=== PATIENT | female | born 1960 | race Caucasian/White ===

== ENCOUNTER 2016-06-04 09:29 | Emergency (ER) | payer OTHER ==
--- NOTE | 2016-06-04 12:16 | ED ORDER SUMMARY ---
..... Patient: CATHERINE SANTANA OrderSheet [facility] VisitID: [id number] [place] [address] 56y, F Registration Date/Time: 06/04/2016 ORDER SHEET Weight: 73.9 kg (stated) Allergies: No Known Drug Allergy GENERAL ORDERS: CBC w Diff Urgent (10:06/04/2016 Samy Rivera) (Ack 10:22 Tasianer) (10:43 Landon R.N.) CMP Urgent (10:06/04/2016 Samy Rivera) (Ack 10:22 Tasianer) (10:43 Landon R.N.) PT with INR Urgent (10:06/04/2016 Samy Rivera) (Ack 10:22 Tasianer) (10:43 Landon R.N.) UA-Culture if indicated Urgent (10:06/04/2016 Samy Rivera) (10:22 Dallin R.N.) Pulse oximeter (10:06/04/2016 Samy Rivera) (Ack 10:22 Tasianer) (10:43 Landon R.N.) MEDICATION ORDERS: Cyclobenzaprine PO 10 mg (NOW) (11:09 06/04/2016 Samy Rivera) (11:29 Landon R.N.) IV FLUIDS: IV NS : initial bolus 1000 mL (1000 mL/hr), then none - for X1 (NOW) (10:06/04/2016 Samy Rivera) (10:45 Dallin R.N.) Zofran IV 4 mg (NOW) (10:06/04/2016 Samy Rivera) (10:43 Landon R.N.) ORDER SHEET NOTES: [Electronically signed by Anabell Alvarado R.N. (12:50 06/04/2016)] [Electronically signed by Kevon Ramirez Dr. (08:21 06/10/2016)] [Electronically locked/signed by Anabell Alvarado R.N. (12:50 06/04/2016)]
--- NOTE | 2016-06-04 12:16 | ED NURSING NOTES ---
Clinical Report - Nurses [facility]ly [facility] [address] [place] [address] 06/04/2016 9:33 Patient: CATHERINE SANTANA TRIAGE Triage time 09:39 Jun 04 2016. Acuity: LEVEL 5. Chief Complaint: (Patient withdrawing from Morphine ER 90mg a day last dose was on Thursday). 09:54 06/04/16. SEPSIS SCREEN: Sepsis Screen. Negative (no infection suspected/documented). YIMI COMA SCORE: Yimi Coma Scale: 15- eyes open spontaneously (4); best verbal response- oriented x 4 (5); best motor response- obeys commands (6). --09:54 Anabell Alvarado R.N. 09:43 06/04/16. BP: 143/117 (regular adult cuff) taken on the left arm, while sitting. HR: 112. RR: 18. O2 saturation: 98% on room air. Temp: 99.3 F (oral). Pain level now: 5/10. Additional comments: body aches . --09:54 Anabell Alvarado R.N. late entry - 10:43. --11:03 Anabell Alvarado R.N. Weight: 73.9 kg stated. Height/Length: 62 inches Per Patient. BMI: 29.8. --09:53 Anabell Alvarado R.N. Medications Gabapentin Oral (Tablet 600 mg) 2 tablets, 3x a day. --09:49 Anabell Alvarado R.N. Aspir-Low Oral. --09:49 Anabell Alvarado R.N. Advil Oral (Tablet 200 mg) 1 tablet, 4x a day. --09:50 Anabell Alvarado R.N. COPD medication. --11:03 Anabell Alvarado R.N. Allergies No Known Drug Allergy. --09:52 Anabell Alvarado R.N. History Arrived by private vehicle. Historian: patient. Accompanied by family and mother. ( Patient takes Morphine ER 45mg twice a day for 8 years and hasnt had medication since Thursday). Treatment MANAGER BUSINESS SYSTEMS: Recently seen in a medical facility; treatment- pain medication. (Oxycodone at 3AM). SOCIAL HX: Heavy tobacco smoker- 1-2 packs per day. No alcohol use or drug use. ABUSE ASSESSMENT: No report of abuse. FALL RISK ASSESSMENT: Fall risk assessment completed. No fall risk identified. NUTRITIONAL RISK ASSESSMENT: The nutritional risk assessment revealed no deficiencies. FUNCTIONAL ASSESSMENT: Functional assessment: no impairments noted. LEARNING NEEDS ASSESSMENT: The learning needs assessment revealed no barriers. SKIN INTEGRITY ASSESSMENT: Skin integrity risk assessment completed. No skin integrity risk identified. --09:54 Anabell Alvarado R.N. PROBLEMS: Back Pain. --09:53 Anabell Alvarado R.N. COPD - Chronic Obstructive Pulmonary Disease. --11:03 Anabell Alvarado R.N. ADDITIONAL SURGERIES: Appendectomy. Back Surgery. Carpal Tunnel Surgery. Hysterectomy. Tonsillectomy & Adenoidectomy. --09:53 Anabell Alvarado R.N. Interventions ID band on patient. To treatment room. --09:54 Anabell Alvarado R.N. PHYSICAL ASSESSMENT 09:55 06/04/16. Ambulatory to room. GENERAL / NEURO / PSYCH: Appears anxious. RESPIRATORY: Respirations not labored. --09:55 Anabell Alvarado R.N. NURSING PROGRESS NOTES 09:55 06/04/16. Head of bed elevated. Reassurance given. Two patient identifiers checked. Call light placed in reach. Side rails up x 1. Bed placed in lowest position. Brakes of bed on. Patient ready for evaluation- chart flagged. --09:55 Anabell Alvarado R.N. 10:30 06/04/2016 Site #1 started via IV in the left forearm with an 20g angiocath, with aseptic technique and good blood return; one attempt. Blood drawn: rainbow set. Saline lock flushed with 10 mL saline. --10:40 Anabell Alvarado R.N. 10:43 06/04/2016 Zofran (Ondansetron HCl) IVP 4 mg given over 1 minute(s) via site #1. Allergies verified and confirmed 5 rights. IV patency established. IV site checked: no pain, redness, or swelling. IV flushed thoroughly pre- and post-medication administration. IVP given by RN. --10:43 Anabell Alvarado R.N. 10:44 06/04/2016 Started bag #1 1000 mL IV Fluids IV NS (Saline); bolus of 1000 mL over 1 hour(s) via site #1 via dial-a-flow. Allergies verified and confirmed 5 rights. IV patency established. IV site checked: no pain, redness, or swelling. IV flushed thoroughly pre- and post-medication administration. --10:45 Cuong Molina R.N. 11:18 06/04/16. ( Patient feeling a little anxious at this time). --11:18 Anabell Alvarado R.N. 11:15 06/04/16. BP: 119/77 (regular adult cuff) taken on the right arm, while sitting. HR: 82 (regular). RR: 18 (regular). O2 saturation: 98% on room air. Temp: 98 F (oral). Pain level now: 10. --11:18 Anabell Alvarado R.N. 11:28 06/04/2016 Cyclobenzaprine PO Tablets 10 mg given. Allergies verified, confirmed 5 rights and sedative warning given to the patient and patient's family. --11:29 Anabell Alvarado R.N. 11:40 06/04/2016 Zofran IVP Response: no adverse reaction pain is improving. Symptoms have improved the patient feels better. --11:41 Anabell Alvarado R.N. 11:49 06/04/2016 IV Fluids IV NS Discontinued: bag #1 completed. Total amount infused: 1000 mL. IV patency established. IV site checked: no pain, redness, or swelling. IV flushed thoroughly. --11:50 Anabell Alvarado R.N. 11:49 06/04/16. ( Patient refuses to keep the SPO2 monitor on. Her O2 sats are ranging from 93% to 98%). --11:49 Anabell Alvarado R.N. 12:38 06/04/2016 Cyclobenzaprine PO Response: no adverse reaction pain is improving. Symptoms have improved the patient feels better. --12:48 Anabell Alvarado R.N. DISPOSITION / DISCHARGE 12:39 06/04/2016 Site #1 removed upon discharge. Bandage applied. --12:39 Anabell Alvarado R.N. 12:41 06/04/16. Condition at departure: improved. No learning barriers present. Discharge instructions provided and reviewed with the patient and parent. Reviewed medication(s) side effects and precautions information. Patient and parent verbalized understanding. Written instructions provided in Lithuanian. The patient was discharged by the physician. She was discharged home and accompanied by parent. She left the Emergency Department ambulatory and via private vehicle. Parent driving. FALL RISK ASSESSMENT: Fall risk assessment completed. No fall risk identified. --12:41 Anabell Alvarado R.N. 12:39 06/04/16. BP: 136/76 (regular adult cuff) taken on the left arm, while lying. HR: 69 (regular). RR: 18 (regular). O2 saturation: 98% on room air. Temp: 98.5 F. Pain level now: 5/10. --12:41 Anabell Alvarado R.N. Departure time: 1240. --12:49 Anabell Alvarado R.N. Locked/Released at 06/04/2016 12:50 by Anabell Alvarado R.N.
--- NOTE | 2016-06-04 12:16 | ED ORDER SUMMARY ---
..... Patient: CATHERINE SANTANA OrderSheet [facility] VisitID: [id number] [place] [address] 56y, F Registration Date/Time: 06/04/2016 ORDER SHEET Weight: 73.9 kg (stated) Allergies: No Known Drug Allergy GENERAL ORDERS: CBC w Diff Urgent (10:06/04/2016 Samy Rivera) (Ack 10:22 Tasianer) (10:43 Landon R.N.) CMP Urgent (10:06/04/2016 Samy Rivera) (Ack 10:22 Tasianer) (10:43 Landon R.N.) PT with INR Urgent (10:06/04/2016 Samy Rivera) (Ack 10:22 Tasianer) (10:43 Landon R.N.) UA-Culture if indicated Urgent (10:06/04/2016 Samy Rivera) (10:22 Dallin R.N.) Pulse oximeter (10:06/04/2016 Samy Rivera) (Ack 10:22 Tasianer) (10:43 Landon R.N.) MEDICATION ORDERS: Cyclobenzaprine PO 10 mg (NOW) (11:09 06/04/2016 Samy Rivera) (11:29 Landon R.N.) IV FLUIDS: IV NS : initial bolus 1000 mL (1000 mL/hr), then none - for X1 (NOW) (10:06/04/2016 Samy Rivera) (10:45 Dallin R.N.) Zofran IV 4 mg (NOW) (10:06/04/2016 Samy Rivera) (10:43 Landon R.N.) ORDER SHEET NOTES: [Electronically signed by Anabell Alvarado R.N. (12:50 06/04/2016)] [Electronically signed by Kevon Ramirez Dr. (08:21 06/10/2016)] [Electronically locked/signed by Anabell Alvarado R.N. (12:50 06/04/2016)]
--- NOTE | 2016-06-04 12:16 | ED CLINICAL REPORT ---
Clinical Report - Physicians/Mid Levels [facility] [address] [place] [address] 06/04/2016 9:33 Patient: CATHERINE SANTANA Time Seen: 0950. Arrived- By private vehicle. Historian- patient. HISTORY OF PRESENT ILLNESS Chief Complaint: wants to get off or morphine. Symptoms started a week ago. Substances abused: Narcotics. (3 day sago). reports long history of Rx morphine for chronic pain. States she wants to get off. The patient has had chills, nausea, vomiting and diarrhea and been agitated. body aches, insomnia, anxiety. The symptoms are described as severe. No injuries noted. Similar symptoms previously: None. Recent medical care: Not recently seen/assessed. REVIEW OF SYSTEMS No chest pain, palpitations or skin abscess. All systems otherwise negative, except as recorded above. PAST HISTORY See nurses notes. Medications: Advil Oral (Tablet 200 mg) 1 tablet, 4x a day. Aspir-Low Oral. Gabapentin Oral (Tablet 600 mg) 2 tablets, 3x a day. Allergies: No Known Drug Allergy. SOCIAL HISTORY Smoker- current status unknown. No alcohol use or drug use. Has social support. Has place to stay. FAMILY HISTORY No history of psychiatric problems. Negative. PHYSICAL EXAM Appearance: Alert. Oriented X3. No acute distress. Head: Head atraumatic. Eyes: Pupils equal, round and reactive to light. ENT: Normal ENT inspection. Airway intact. Moist mucous membranes. Pharynx normal. Neck: Normal inspection. Neck supple. CVS: Normal heart rate and rhythm. Heart sounds normal. Pulses normal. Respiratory: No respiratory distress. Breath sounds normal. Abdomen: Soft and nontender. No organomegaly. Back: Normal inspection. Skin: Skin warm and dry. Normal skin color. No rash. Normal skin turgor. Extremities: Extremities exhibit normal ROM. No lower extremity edema. Neuro: Alert. Oriented X 3. Mood/affect normal. Speech normal. Cranial nerves normal (as tested). No cerebellar findings. No motor deficit. No sensory deficit. Reflexes normal. LABS, X-RAYS, AND EKG Laboratory Tests: UA-Culture if indicated: (KATELYNN: 06/04/2016 09:55) ( [facility] [place]/04[place]2016 10:40) Final results Test Result Flag Units (Reference) URINE COLOR YELLOW URINE APPEARANCE CLEAR URINE GLUCOSE NEGATIVE (NEGATIVE) URINE BILIRUBIN NEGATIVE (NEGATIVE) URINE KETONE NEGATIVE (NEGATIVE) URINE SPECIFIC GRAVITY <= 1.005 L (1.010-1.030) URINE PH 6.0 (5.0-8.0) URINE PROTEIN NEGATIVE (NEGATIVE) URINE UROBILINOGEN 0.2 EU/dL (0.2-1.0) URINE NITRITE NEGATIVE (NEGATIVE) URINE BLOOD NEGATIVE (NEGATIVE) URINE LEUK ESTERASE NEGATIVE (NEGATIVE) URINE RBC RARE rbc/hpf (0-1) URINE WBC RARE wbc/hpf (0-1) URINE EPITHELIAL CELLS 1-3 EPI/hpf (0-5) URINE BACTERIA TRACE (<1+) (NONE SEEN) URINE COMMENT CULT NOT INDICATED URINE CULTURES ARE SET-UP BASED ON THE FOLLOWING CRITERIA:POSITIVE NITRITEPOSITIVE LEUKOCYTE ESTERASEGREATER THAN 10 WHITE BLOOD CELLSMODERATE (2+) OR GREATER BACTERIA CBC w Diff: (KATELYNN: 06/04/2016 10:35) ( [facility] [place]/04/2016 10:52) Final results Test Result Flag Units (Reference) WHITE BLOOD COUNT 8.1 K/uL (4.5-11.5) RED BLOOD COUNT 4.68 M/uL (4.00-5.20) HEMOGLOBIN 14.9 gm/dL (12.0-16.0) HEMATOCRIT 44.7 % (36.0-46.0) MEAN CELL VOLUME 96 fL (80-100) MEAN CORPUSCULAR HGB 32 pg (26-34) MEAN CORPUSCULAR HGB CONC 33 g/dL (31-37) RED CELL DISTRIBUTION WIDTH 13.7 % (11.6-14.8) PLATELET COUNT 262 K/uL (150-400) NEUTROPHIL % 57.2 % (50-75) LYMPH % 33.9 % (25-40) MONO % 5.3 % (3-14) EOSINOPHIL % 2.4 % (0-4) BASOPHIL % 1.2 % (0-2) PT with INR: (KATELYNN: 06/04/2016 10:35) ( Msg[facility]cvd 06/04/2016 11:00) Final results Test Result Flag Units (Reference) INR 1.0 (0.8-1.2) Low Intensity Therapy: INR 1.5-2.0 PT range 18.5-23.1Mod.Intensity Therapy: INR 2.0-3.0 PT range 23.1-31.5High Intensity Therapy: INR 2.5-3.5 PT range 27.4-35.5High Intensity Therapy 2: INR 3.0-4.0 PT range 31.5-39.3 CMP: (KATELYNN: 06/04/2016 11:06) ( MsgRcvd 06/04/2016 11:42) Final results Test Result Flag Units (Reference) GLUCOSE 93 mg/dL (70-110) BUN 8 mg/dL (7-18) CREATININE 0.7 mg/dL (0.6-1.3) Estimated GFR >60 mL/min Estimated GFR- >60 mL/min Note: Persistent reduction over 3 months in eGFR<60 mL/min/1.73 m2 defines CKD. Patients with eGFR values>=60 mL/min/1.73 m2 may also have CKD if evidence ofpersistent proteinuria. Additional information may be foundat www.kidney.org. SODIUM 144 mmol/L (136-145) POTASSIUM 4.0 mmol/L (3.5-5.1) CHLORIDE 107 mmol/L (98-107) CARBON DIOXIDE 25 mmol/L (21-32) CALCIUM 8.6 mg/dL (8.5-10.1) TOTAL PROTEIN 7.1 g/dL (6.4-8.2) ALBUMIN 3.7 g/dL (3.3-5.0) BILIRUBIN, TOTAL 0.3 mg/dL (0.0-1.0) ALKALINE PHOSPHATASE 76 U/L (46-116) AST (SGOT) 17 U/L (15-37) ALT (SGPT) 19 U/L (12-78) . PROGRESS AND PROCEDURES Course of Care: The patient is a pleasant 56-year-old female presenting for evaluation of opioid withdrawal. Symptoms are consistent with this. Had a long discussion with patient in regards to opioid withdrawal and medications. Patient and the patient's mother had demanded medications to help with the withdrawal symptoms. Had long discussion with patient and with the mother in regards to medications for opioid withdrawal. Explained to them the pathophysiology and mechanism behind withdrawals. Explained to patient and mother that it would be very difficult to provide patient with a medication that would help with the symptoms of opioid withdrawal while not also being addicting. I did caution patient and mother in regards to other types of medications to help with symptoms and their possible addictive risks. Because of this, the patient's in the patient's mother were understanding of trying to limit the prescription of medications provided for symptoms control. To patient that withdrawal from opioids is extremely painful and may be extremely difficult however they are not known to be life-threatening. The patient in the patient's mother were agreeable to the treatment plan. Nausea medications will be provided. Laboratory studies also been ordered for evaluation of the nausea and vomiting associated with the opioid withdrawal to evaluate for any underlying metabolic derangements or other more sinister causes such as pancreatitis or liver abnormalities. Patient's workup does not show any acute abnormalities. Patient reports a slight improvement with symptoms however states that they are still quite severe. Encouraged patient to continue with her course of treatment and to stay sober. Patient reports that she will try to stay sober. I also had discussion with patient in regards to other types of treatments. Patient reports that she does not want to be on methadone as she reports that this is worse than what she was on before. The patient was somewhat worried about the symptoms however it explained to patient that we would be here in the emergency department for any problems that she encountered in the future or if she needed help. Patient seemed to be relieved by this. Do not the patient needs to be admitted to the hospital require further emergency department workup/evaluation. Patient is a good outpatient candidate. Patient does have good outside resources. Patient also belongs to a local gnosticist which appears to be helping her with thewithdrawal process. Discussed with patient workup, diagnosis, home care, follow-up, and return precautions. All questions answered. The patient expressed understanding of these instructions and was agreeable to them. Disposition: Discharged. Condition: good. CLINICAL IMPRESSION 06/04/2016 09:44 BP: 143/117. HR: 112. RR: 18. O2 saturation: 98%. Temp: 99.3 F. Pain level now: 5/10. Blood pressure normal. Oxygen saturation normal. Narcotic withdrawal (acute). INSTRUCTIONS Warnings: GENERAL WARNINGS: Return or contact your physician immediately if your condition worsens or changes unexpectedly, if not improving as expected, or if other problems arise. Specifically return if pain, vomiting, bleeding, breathing difficulty or fever. Your Current Medications: CONTINUE TAKING THE FOLLOWING MEDICATIONS: Advil Oral : Tablet 200 mg, 1 tablet 4x a day. Aspir-Low Oral. COPD medication*. Gabapentin Oral : Tablet 600 mg, 2 tablets 3x a day. Prescription Medications: Zofran (orally disintegrating tablets) 4 mg: take 1 orally every 8 hours as needed for nausea and vomiting. Dispense fifteen (15). No refill. Substitution is permissible. Cyclobenzaprine 10 mg: take 1 orally every 8 hours for 5 days as needed for muscle spasm or pain. Dispense fifteen (15). No refills. Follow-up: Return to the emergency department as needed. Follow up with your doctor in three days. Reason for referral: recheck today's concerns. Summary of care provided to patient via paper. Screening today revealed the patient's blood pressure to be in the normal range. The patient should follow up with a primary care provider for blood pressure management. Understanding of the discharge instructions verbalized by patient. (Electronically signed by Kevon Ramirez Dr. 06/10/2016 8:21)
--- NOTE | 2016-06-10 08:21 | ED DISCHARGE INSTRUCTIONS ---
Patient: CATHERINE SANTANA General Instructions [facility] VisitID: [id number] [place] [address] 56y, F Registration Date/Time: 06/04/2016 06/04/2016 09:44 BP: 143/117. HR: 112. RR: 18. O2 saturation: 98%. Temp: 99.3 F. Pain level now: 5/10. Blood pressure normal. Oxygen saturation normal. Narcotic withdrawal (acute). INSTRUCTIONS Warnings: GENERAL WARNINGS: Return or contact your physician immediately if your condition worsens or changes unexpectedly, if not improving as expected, or if other problems arise. Specifically return if pain, vomiting, bleeding, breathing difficulty or fever. Your Current Medications: CONTINUE TAKING THE FOLLOWING MEDICATIONS: Advil Oral : Tablet 200 mg, 1 tablet 4x a day. Aspir-Low Oral. COPD medication*. Gabapentin Oral : Tablet 600 mg, 2 tablets 3x a day. Prescription Medications: Zofran (orally disintegrating tablets) 4 mg: take 1 orally every 8 hours as needed for nausea and vomiting. Dispense fifteen (15). No refill. Substitution is permissible. Cyclobenzaprine 10 mg: take 1 orally every 8 hours for 5 days as needed for muscle spasm or pain. Dispense fifteen (15). No refills. Follow-up: Return to the emergency department as needed. Follow up with your doctor in three days. Reason for referral: recheck today's concerns. Summary of care provided to patient via paper. Screening today revealed the patient's blood pressure to be in the normal range. The patient should follow up with a primary care provider for blood pressure management. Understanding of the discharge instructions verbalized by patient. ADDITIONAL INFORMATION Ondansetron Oral disintegrating tablet What is this medicine? ONDANSETRON (on ALLI se fatmata) is used to treat nausea and vomiting caused by chemotherapy. It is also used to prevent or treat nausea and vomiting after surgery. How should I use this medicine? These tablets are made to dissolve in the mouth. Do not try to push the tablet through the foil backing. With dry hands, peel away the foil backing and gently remove the tablet. Place the tablet in the mouth and allow it to dissolve, then swallow. While you may take these tablets with water, it is not necessary to do so. Talk to your serologist regarding the use of this medicine in children. Special care may be needed. What side effects may I notice from receiving this medicine? Side effects that you should report to your doctor or health child daycare worker as soon as possible: allergic reactions like skin rash, itching or hives, swelling of the face, lips, or tongue breathing problems dizziness fast or irregular heartbeat feeling faint or lightheaded, falls fever and chills swelling of the hands and feet tightness in the chest Side effects that usually do not require medical attention (report to your doctor or health child daycare worker if they continue or are bothersome): constipation or diarrhea headache What may interact with this medicine? Do not take this medicine with any of the following medications: -apomorphine -cisapride -dofetilide -dronedarone -pimozide -thioridazine -ziprasidone This medicine may also interact with the following medications: -carbamazepine -phenytoin -rifampicin -tramadol -other medicines that prolong the QT interval (cause an abnormal heart rhythm) What if I miss a dose? If you miss a dose, take it as soon as you can. If it is almost time for your next dose, take only that dose. Do not take double or extra doses. Where should I keep my medicine? Keep out of the reach of children. Store between 2 and 30 degrees C (36 and 86 degrees F). Throw away any unused medicine after the expiration date. What should I tell my health care provider before I take this medicine? They need to know if you have any of these conditions: heart disease history of irregular heartbeat liver disease low levels of magnesium or potassium in the blood an unusual or allergic reaction to ondansetron, granisetron, other medicines, foods, dyes, or preservatives or trying to get breast-feeding What should I watch for while using this medicine? Check with your doctor or health child daycare worker as soon as you can if you have any sign of an allergic reaction. Cyclobenzaprine Hydrochloride Oral tablet What is this medicine? CYCLOBENZAPRINE (sye kloe KINGSLEY destiny zaragozaen) is a muscle relaxer. It is used to treat muscle pain, spasms, and stiffness. How should I use this medicine? Take this medicine by mouth with a glass of water. Follow the directions on the prescription label. If this medicine upsets your stomach, take it with food or milk. Take your medicine at regular intervals. Do not take it more often than directed. Talk to your serologist regarding the use of this medicine in children. Special care may be needed. What side effects may I notice from receiving this medicine? Side effects that you should report to your doctor or health child daycare worker as soon as possible: allergic reactions like skin rash, itching or hives, swelling of the face, lips, or tongue chest pain fast heartbeat hallucinations seizures vomiting Side effects that usually do not require medical attention (report to your doctor or health child daycare worker if they continue or are bothersome): headache What may interact with this medicine? Do not take this medicine with any of the following medications: cisapride droperidol flecainide grepafloxacin halofantrine levomethadyl MAOIs like Carbex, Eldepryl, Marplan, Nardil, and Parnate nilotinib pimozide probucol sertindole This medicine may also interact with the following medications: abarelix alcohol contrast dyes dolasetron guanethidine medicines for cancer medicines for depression, anxiety, or psychotic disturbances medicines to treat an irregular heartbeat medicines used for sleep or numbness during surgery or procedure methadone octreotide ondansetron palonosetron phenothiazines like chlorpromazine, mesoridazine, prochlorperazine, thioridazine some medicines for infection like alfuzosin, chloroquine, clarithromycin, levofloxacin, mefloquine, pentamidine, troleandomycin tramadol vardenafil What if I miss a dose? If you miss a dose, take it as soon as you can. If it is almost time for your next dose, take only that dose. Do not take double or extra doses. Where should I keep my medicine? Keep out of the reach of children. Store at room temperature between 15 and 30 degrees C (59 and 86 degrees F). Keep container tightly closed. Throw away any unused medicine after the expiration date. What should I tell my health care provider before I take this medicine? They need to know if you have any of these conditions: heart disease, irregular heartbeat, or previous heart attack liver disease thyroid problem an unusual or allergic reaction to cyclobenzaprine, tricyclic antidepressants, lactose, other medicines, foods, dyes, or preservatives or trying to get breast-feeding What should I watch for while using this medicine? Check with your doctor or health child daycare worker if your condition does not improve within 1 to 3 weeks. You may get drowsy or dizzy when you first start taking the medicine or change doses. Do not drive, use machinery, or do anything that may be dangerous until you know how the medicine affects you. Stand or sit up slowly. Your mouth may get dry. Drinking water, chewing sugarless gum, or sucking on hard candy may help. You have been given the following additional information: Ondansetron Oral disintegrating tablet Cyclobenzaprine Hydrochloride Oral tablet (Electronically signed by Kevon Ramirez Dr. 06/10/2016 8:21)
--- NOTE | 2016-06-10 08:21 | ED MED RECONCILIATION SUMMARY ---
Patient: CATHERINE SANTANA Medication Reconciliation Report [facility] VisitID: [id number] [address] [place] [address] 56y, F Registration Date/Time: 06/04/2016 Weight: 73.9 kg Height/Length: 62 in. BMI: 29.8 ALLERGIES: No Known Drug Allergy The patient's Home Medications are listed below: CONTINUE TAKING THE FOLLOWING MEDICATIONS: Advil Oral (200 mg) 1 tablet, 4x a day Aspir-Low Oral COPD medication Gabapentin Oral (600 mg) 2 tablets, 3x a day The source(s) of the original Home Medication information: Not obtained. The following Medications were given to the patient in the Emergency Department: Zofran [IVP] IVP 4 mg, administered: 06/04/2016 10:43:00 AM IV NS IV Fluids bolus 1000 mL over 1 hour(s), administered: 06/04/2016 10:44:00 AM Cyclobenzaprine [PO] PO 10 mg, administered: 06/04/2016 11:28:00 AM The following Medications were prescribed to the patient: Zofran (orally disintegrating tablets) 4 mg: take 1 orally every 8 hours as needed for nausea and vomiting. Dispense fifteen (15). No refill. Substitution is permissible. -- Kevon Ramirez Dr. Cyclobenzaprine 10 mg: take 1 orally every 8 hours for 5 days as needed for muscle spasm or pain. Dispense fifteen (15). No refills. -- Kevon Ramirez Dr.
--- NOTE | 2016-06-10 08:21 | ED MAR SUMMARY ---
..... Medication Administration Record [facility] [address] [place] [address] Patient: CATHERINE SANTANA Visit ID: [id number] 56y, F Weight: 73.9 kg Height/Length: 62 in BMI: 29.8 ALLERGIES: No Known Drug Allergy Given 10:43 06/04/2016 Anabell Alvarado R.N. Medication Administered: ZOFRAN [IVP] (ONDANSETRON HCL), Dose: 4 mg IVP over 1 minute(s), Site: #1 left forearm. Medication Ordered: Zofran IV 4 mg (NOW). Start 10:44 06/04/2016 Cuong Molina R.N., Stop 11:49 06/04/2016 Anabell Alvarado R.N. Medication Administered: IV NS (SALINE), Dose: IV Fluids, Bolus: 1000 mL over 1 hour(s), Dispensed: 1000 mL bag, Site: #1 left forearm. Medication Ordered: IV NS : initial bolus 1000 mL (1000 mL/hr), then none - for X1 (NOW). Given 11:28 06/04/2016 Anabell Alvarado R.N. Medication Administered: CYCLOBENZAPRINE [PO], Dose: 10 mg Tablets PO. Medication Ordered: Cyclobenzaprine PO 10 mg (NOW).
--- NOTE | 2016-06-10 08:21 | ED DISCHARGE INSTRUCTIONS ---
Patient: CATHERINE SANTANA General Instructions [facility] VisitID: [id number] [place] [address] 56y, F Registration Date/Time: 06/04/2016 06/04/2016 09:44 BP: 143/117. HR: 112. RR: 18. O2 saturation: 98%. Temp: 99.3 F. Pain level now: 5/10. Blood pressure normal. Oxygen saturation normal. Narcotic withdrawal (acute). INSTRUCTIONS Warnings: GENERAL WARNINGS: Return or contact your physician immediately if your condition worsens or changes unexpectedly, if not improving as expected, or if other problems arise. Specifically return if pain, vomiting, bleeding, breathing difficulty or fever. Your Current Medications: CONTINUE TAKING THE FOLLOWING MEDICATIONS: Advil Oral : Tablet 200 mg, 1 tablet 4x a day. Aspir-Low Oral. COPD medication*. Gabapentin Oral : Tablet 600 mg, 2 tablets 3x a day. Prescription Medications: Zofran (orally disintegrating tablets) 4 mg: take 1 orally every 8 hours as needed for nausea and vomiting. Dispense fifteen (15). No refill. Substitution is permissible. Cyclobenzaprine 10 mg: take 1 orally every 8 hours for 5 days as needed for muscle spasm or pain. Dispense fifteen (15). No refills. Follow-up: Return to the emergency department as needed. Follow up with your doctor in three days. Reason for referral: recheck today's concerns. Summary of care provided to patient via paper. Screening today revealed the patient's blood pressure to be in the normal range. The patient should follow up with a primary care provider for blood pressure management. Understanding of the discharge instructions verbalized by patient. ADDITIONAL INFORMATION Ondansetron Oral disintegrating tablet What is this medicine? ONDANSETRON (on ALLI se fatmata) is used to treat nausea and vomiting caused by chemotherapy. It is also used to prevent or treat nausea and vomiting after surgery. How should I use this medicine? These tablets are made to dissolve in the mouth. Do not try to push the tablet through the foil backing. With dry hands, peel away the foil backing and gently remove the tablet. Place the tablet in the mouth and allow it to dissolve, then swallow. While you may take these tablets with water, it is not necessary to do so. Talk to your fisher trawl net regarding the use of this medicine in children. Special care may be needed. What side effects may I notice from receiving this medicine? Side effects that you should report to your doctor or health intensive care medicine specialist as soon as possible: allergic reactions like skin rash, itching or hives, swelling of the face, lips, or tongue breathing problems dizziness fast or irregular heartbeat feeling faint or lightheaded, falls fever and chills swelling of the hands and feet tightness in the chest Side effects that usually do not require medical attention (report to your doctor or health intensive care medicine specialist if they continue or are bothersome): constipation or diarrhea headache What may interact with this medicine? Do not take this medicine with any of the following medications: -apomorphine -cisapride -dofetilide -dronedarone -pimozide -thioridazine -ziprasidone This medicine may also interact with the following medications: -carbamazepine -phenytoin -rifampicin -tramadol -other medicines that prolong the QT interval (cause an abnormal heart rhythm) What if I miss a dose? If you miss a dose, take it as soon as you can. If it is almost time for your next dose, take only that dose. Do not take double or extra doses. Where should I keep my medicine? Keep out of the reach of children. Store between 2 and 30 degrees C (36 and 86 degrees F). Throw away any unused medicine after the expiration date. What should I tell my health care provider before I take this medicine? They need to know if you have any of these conditions: heart disease history of irregular heartbeat liver disease low levels of magnesium or potassium in the blood an unusual or allergic reaction to ondansetron, granisetron, other medicines, foods, dyes, or preservatives or trying to get breast-feeding What should I watch for while using this medicine? Check with your doctor or health intensive care medicine specialist as soon as you can if you have any sign of an allergic reaction. Cyclobenzaprine Hydrochloride Oral tablet What is this medicine? CYCLOBENZAPRINE (sye kloe KINGSLEY destiny zaragozaen) is a muscle relaxer. It is used to treat muscle pain, spasms, and stiffness. How should I use this medicine? Take this medicine by mouth with a glass of water. Follow the directions on the prescription label. If this medicine upsets your stomach, take it with food or milk. Take your medicine at regular intervals. Do not take it more often than directed. Talk to your fisher trawl net regarding the use of this medicine in children. Special care may be needed. What side effects may I notice from receiving this medicine? Side effects that you should report to your doctor or health intensive care medicine specialist as soon as possible: allergic reactions like skin rash, itching or hives, swelling of the face, lips, or tongue chest pain fast heartbeat hallucinations seizures vomiting Side effects that usually do not require medical attention (report to your doctor or health intensive care medicine specialist if they continue or are bothersome): headache What may interact with this medicine? Do not take this medicine with any of the following medications: cisapride droperidol flecainide grepafloxacin halofantrine levomethadyl MAOIs like Carbex, Eldepryl, Marplan, Nardil, and Parnate nilotinib pimozide probucol sertindole This medicine may also interact with the following medications: abarelix alcohol contrast dyes dolasetron guanethidine medicines for cancer medicines for depression, anxiety, or psychotic disturbances medicines to treat an irregular heartbeat medicines used for sleep or numbness during surgery or procedure methadone octreotide ondansetron palonosetron phenothiazines like chlorpromazine, mesoridazine, prochlorperazine, thioridazine some medicines for infection like alfuzosin, chloroquine, clarithromycin, levofloxacin, mefloquine, pentamidine, troleandomycin tramadol vardenafil What if I miss a dose? If you miss a dose, take it as soon as you can. If it is almost time for your next dose, take only that dose. Do not take double or extra doses. Where should I keep my medicine? Keep out of the reach of children. Store at room temperature between 15 and 30 degrees C (59 and 86 degrees F). Keep container tightly closed. Throw away any unused medicine after the expiration date. What should I tell my health care provider before I take this medicine? They need to know if you have any of these conditions: heart disease, irregular heartbeat, or previous heart attack liver disease thyroid problem an unusual or allergic reaction to cyclobenzaprine, tricyclic antidepressants, lactose, other medicines, foods, dyes, or preservatives or trying to get breast-feeding What should I watch for while using this medicine? Check with your doctor or health intensive care medicine specialist if your condition does not improve within 1 to 3 weeks. You may get drowsy or dizzy when you first start taking the medicine or change doses. Do not drive, use machinery, or do anything that may be dangerous until you know how the medicine affects you. Stand or sit up slowly. Your mouth may get dry. Drinking water, chewing sugarless gum, or sucking on hard candy may help. You have been given the following additional information: Ondansetron Oral disintegrating tablet Cyclobenzaprine Hydrochloride Oral tablet (Electronically signed by Kevon Ramirez Dr. 06/10/2016 8:21)
--- NOTE | 2016-06-10 08:21 | ED MAR SUMMARY ---
..... Medication Administration Record [facility] [address] [place] [address] Patient: CATHERINE SANTANA Visit ID: [id number] 56y, F Weight: 73.9 kg Height/Length: 62 in BMI: 29.8 ALLERGIES: No Known Drug Allergy Given 10:43 06/04/2016 Anabell Alvarado R.N. Medication Administered: ZOFRAN [IVP] (ONDANSETRON HCL), Dose: 4 mg IVP over 1 minute(s), Site: #1 left forearm. Medication Ordered: Zofran IV 4 mg (NOW). Start 10:44 06/04/2016 Cuong Molina R.N., Stop 11:49 06/04/2016 Anabell Alvarado R.N. Medication Administered: IV NS (SALINE), Dose: IV Fluids, Bolus: 1000 mL over 1 hour(s), Dispensed: 1000 mL bag, Site: #1 left forearm. Medication Ordered: IV NS : initial bolus 1000 mL (1000 mL/hr), then none - for X1 (NOW). Given 11:28 06/04/2016 Anabell Alvarado R.N. Medication Administered: CYCLOBENZAPRINE [PO], Dose: 10 mg Tablets PO. Medication Ordered: Cyclobenzaprine PO 10 mg (NOW).
--- NOTE | 2016-06-10 08:21 | ED MED RECONCILIATION SUMMARY ---
Patient: CATHERINE SANTANA Medication Reconciliation Report [facility] VisitID: [id number] [address] [place] [address] 56y, F Registration Date/Time: 06/04/2016 Weight: 73.9 kg Height/Length: 62 in. BMI: 29.8 ALLERGIES: No Known Drug Allergy The patient's Home Medications are listed below: CONTINUE TAKING THE FOLLOWING MEDICATIONS: Advil Oral (200 mg) 1 tablet, 4x a day Aspir-Low Oral COPD medication Gabapentin Oral (600 mg) 2 tablets, 3x a day The source(s) of the original Home Medication information: Not obtained. The following Medications were given to the patient in the Emergency Department: Zofran [IVP] IVP 4 mg, administered: 06/04/2016 10:43:00 AM IV NS IV Fluids bolus 1000 mL over 1 hour(s), administered: 06/04/2016 10:44:00 AM Cyclobenzaprine [PO] PO 10 mg, administered: 06/04/2016 11:28:00 AM The following Medications were prescribed to the patient: Zofran (orally disintegrating tablets) 4 mg: take 1 orally every 8 hours as needed for nausea and vomiting. Dispense fifteen (15). No refill. Substitution is permissible. -- Kevon Ramirez Dr. Cyclobenzaprine 10 mg: take 1 orally every 8 hours for 5 days as needed for muscle spasm or pain. Dispense fifteen (15). No refills. -- Kevon Ramirez Dr.
== END 2016-06-04 12:40 | disposition home or self-care (01) ==
LOC: ED SRH 09:29
DX: F11.23 Opioid dependence with withdrawal (principal); R11.2 Nausea with vomiting, unspecified; J44.9 Chronic obstructive pulmonary disease, unspecified; F17.200 Nicotine dependence, unspecified, uncomplicated; Z79.82 Long term (current) use of aspirin
CPT/HCPCS: 90004; 90074; 90100; 94060; 95059